=== PATIENT | female | born 1990 | race Hispanic/Latino ===

== ENCOUNTER 2020-09-24 18:38 | Emergency (ER) | payer OTHER ==
[2020-09-24 19:01] LABS: BASOPHILS % (AUTO) 0.4 % (0.0-5.0); EOSINOPHILS % (AUTO) 0.4 % (0.0-8.0); HEMATOCRIT 43.3 % (36-48); LYMPHOCYTES % (AUTO) 6.1 % (21.0-51.0); MEAN CORPUSCULAR HEMOGLOBIN 31.5 pg (27.0-33.0); MEAN CORPUSCULAR HGB CONC 35.8 g/dL (32.0-36.0); MONOCYTES % (AUTO) 2.7 % (3.0-13.0); NEUTROPHILS % (AUTO) 90.2 % (40.0-77.0); PLATELET COUNT (AUTO) 199 K/uL (130-400); RED BLOOD CELL COUNT(AUTO) 4.92 MIL/uL (4.00-5.50); WHITE BLOOD COUNT (AUTO) 12.4 K/uL (4.8-10.8)
[2020-09-24] MEDS ORDERED: SODIUM CHLORIDE 0.9% 1000ML 1,000 ML IV ONE (19:04)
[2020-09-24 19:18] LABS: CREATININE 0.6 mg/dL (0.5-1.5); POTASSIUM 3.2 mmol/L (3.5-5.1)
[2020-09-24 19:26] LABS: ALBUMIN 4.2 g/dL (3.5-5.0); BILIRUBIN,TOTAL 0.8 mg/dL (0.2-1.0)
[2020-09-24] MEDS ORDERED: MORPHINE SULFATE 2 MG/ML 1ML SYG ONE (19:27)
[2020-09-24] MEDS ORDERED: ONDANSETRON HCL 4 MG/2 ML VIAL ONE (19:27)
[2020-09-24] MEDS ORDERED: POTASSIUM CHLORIDE 20 MEQ ERTAB PO ONE (19:30)
[2020-09-24 19:34] LABS: APPEARANCE,URINE Cloudy (CLEAR); BILIRUBIN,URINE Negative (NEGATIVE); COLOR,URINE Yellow (YELLOW); GLUCOSE, URINE (UA) Negative (NEGATIVE); KETONES,URINE Negative (NEGATIVE); LEUKOCYTE ESTERASE ,URINE Large (NEGATIVE); NITRATE,URINE Negative (NEGATIVE); OCCULT BLOOD,URINE Small (NEGATIVE); PH,URINE 6.5 (5.0-8.0); PROTEIN,URINE Trace mg/dL (NEGATIVE); UROBILINOGEN,URINE 0.2 mg/dL (0.2-1.0)
[2020-09-24 19:36] LABS: HCG,QUAL RESULT NEGATIVE (NEGATIVE)
[2020-09-24 19:47] LABS: BACTERIA,URINE Moderate /HPF (None Seen)
[2020-09-24 19:48] LABS: MUCUS,URINE Many LPF (None Seen)
[2020-09-24 19:50] LABS: AMORPHOUS SEDIMENT,UR Few /LPF (None Seen)
[2020-09-24 19:51] LABS: WBC,URINE 26-50 /HPF (0-1)
[2020-09-24] MEDS ORDERED: CEFTRIAXONE SODIUM 1 GM ONE (20:50)
[2020-09-24] MEDS ORDERED: LIDOCAINE HCL-MPF 1% 2ML VIAL ONE (20:50)
== END 2020-09-24 20:59 | disposition home or self-care (01) ==
LOC: EDH 18:38
DX: N39.0 Urinary tract infection, site not specified (principal); Z90.49 Acquired absence of other specified parts of digestive tract; Z72.0 Tobacco use
CPT/HCPCS: 36415; 80053; 81001; 81025; 83690; 85025; 87077; 87088; 87186; 96361; 96372; 96374; 96375; 99284; J0696; J2405; J3490; J7030